=== PATIENT | male | born 1950 | race Caucasian/White ===

== ENCOUNTER 2019-01-13 09:44 | Outpatient (REF) | payer MEDICARE, SELFPAY ==
[2019-01-13 19:21] LABS: HCT 42.9 % (40.0-50.0); HGB 14.8 g/dL (13.5-17.5); Mean Corp. HGB Concentration 34.5 g/dL (32.0-36.0); Mean Corpuscular Hemoglobin 29.6 pg (27.0-33.0); Mean Corpuscular Volume 85.8 fL (80-95); Mean Platelet Volume 10.4 fL (8.0-11.0); Platelet Count 228 x1000/uL (130-400); RBC Distribution Width 13.9 % (11.8-14.1); White Blood Cell Count 6.21 k/cumm (4.4-10.8)
[2019-01-13 19:50] LABS: Anion Gap 8.4 mmol/L (3-11); BUN 17 mg/dL (7-18); CO2 28.6 mmol/L (21.0-32.0); Calcium 8.7 mg/dL (8.5-10.1); Chloride 104 mmol/L (98-107); Cholesterol 187 mg/dL (50-200); Glucose 114 mg/dL (70-100); HDL Cholesterol 29 mg/dL (40-60); LDL CHOLESTEROL 113 mg/dL (<100); Potassium 4.4 mmol/L (3.5-5.1); Sodium 141 mmol/L (136-145); Triglyceride 226 mg/dL (30-150)
[2019-01-13 20:13] LABS: CREATININE 0.93 mg/dL (0.70-1.30); Uric Acid 6.1 mg/dL (3.5-7.2)
== END 2019-01-13 10:04 ==
LOC: NCHCN 09:44
PROVIDERS: PCP Internal Medicine; Visit Provider Internal Medicine
DX: M10.9 Gout, unspecified (principal); E78.1 Pure hyperglyceridemia
CPT/HCPCS: 80048; 80061; 83721; 85027; 84550

== ENCOUNTER 2020-01-16 19:27 | Outpatient (REF) | payer MEDICARE, SELFPAY ==
[2020-01-16 19:16] LABS: HCT 43.6 % (40.0-50.0); HGB 14.6 g/dL (13.5-17.5); Mean Corp. HGB Concentration 33.5 g/dL (32.0-36.0); Mean Corpuscular Volume 86.7 fL (80-95); Mean Platelet Volume 10.8 fL (8.0-11.0); Platelet Count 234 x1000/uL (130-400); RBC 5.03 m/cumm (4.50-6.00); RBC Distribution Width 14.2 % (11.8-14.1); White Blood Cell Count 6.57 k/cumm (4.4-10.8)
[2020-01-16 19:36] LABS: Anion Gap 7.6 mmol/L (3-11); BUN 13 mg/dL (7-18); CO2 27.4 mmol/L (21.0-32.0); CREATININE 0.96 mg/dL (0.70-1.30); Calcium 8.9 mg/dL (8.5-10.1); Chloride 105 mmol/L (98-107); Glucose 107 mg/dL (74-106); LDL CHOLESTEROL 123 mg/dL (<100); Potassium 4.2 mmol/L (3.5-5.1); Sodium 140 mmol/L (136-145)
[2020-01-16 19:46] LABS: Uric Acid 6.4 mg/dL (3.5-7.2)
== END 2020-01-16 19:47 ==
LOC: NCHCN 19:27
PROVIDERS: PCP Internal Medicine; Visit Provider Internal Medicine
DX: E78.5 Hyperlipidemia, unspecified (principal); M10.9 Gout, unspecified; R03.0 Elevated blood-pressure reading, without diagnosis of hypertension
CPT/HCPCS: 80048; 83721; 85027; 84550

== ENCOUNTER 2020-12-17 10:03 | Outpatient (REF) | payer MEDICARE, SELFPAY ==
[2020-12-17 20:03] LABS: CREATININE 0.9 mg/dL (0.70-1.30)
== END 2020-12-17 10:04 | disposition home or self-care (01) ==
LOC: NCHCN 10:03
PROVIDERS: PCP Internal Medicine; Visit Provider Nurse Practitioner Family
DX: M48.061 Spinal stenosis, lumbar region without neurogenic claudication (principal); Z01.812 Encounter for preprocedural laboratory examination
CPT/HCPCS: 82565

== ENCOUNTER 2021-05-13 15:36 | Outpatient (REF) | payer MEDICARE, SELFPAY ==
[2021-05-13 18:56] LABS: HCT 43.9 % (40.0-50.0); HGB 14.9 g/dL (13.5-17.5); MCHC 33.9 % (32.0-36.0); MCV 88.3 fL (80-95); MPV 10.3 fL (8.0-11.0); Platelet Count 235 10^3/uL (130-400); RBC 4.97 10^6/uL (4.36-5.78); RDW 13.6 % (11.8-14.1); RDW-SD 43.8 fL; WBC 7.38 10^3/uL (4.4-10.8)
[2021-05-13 19:10] LABS: Anion Gap 7.8 mmol/L (3-11); BUN 14 mg/dL (7-18); CO2 27.2 mmol/L (21.0-32.0); CREATININE 0.9 mg/dL (0.70-1.30); Chloride 104 mmol/L (98-107); Glucose 96 mg/dL (74-106); Potassium 4.1 mmol/L (3.5-5.1); Sodium 139 mmol/L (136-145); Uric Acid 6.6 mg/dL (3.5-7.2)
== END 2021-05-13 15:37 | disposition home or self-care (01) ==
LOC: NCHCN 15:36
PROVIDERS: PCP Internal Medicine; Visit Provider Internal Medicine
DX: M54.32 Sciatica, left side (principal); E29.1 Testicular hypofunction; M10.9 Gout, unspecified; E66.9 Obesity, unspecified
CPT/HCPCS: 80048; 85027; 84550

== ENCOUNTER 2022-05-26 17:10 | Outpatient (REF) | payer MEDICARE, SELFPAY ==
[2022-05-26 20:21] LABS: ALT 43 U/L (16-63); Anion Gap 13.2 mmol/L (3-11); BUN 12 mg/dL (7-18); CO2 25.8 mmol/L (21.0-32.0); CREATININE 0.7 mg/dL (0.70-1.30); Calcium 9.7 mg/dL (8.5-10.1); Calculated LDL 106 mg/dL (<100); Chloride 102 mmol/L (98-107); Cholesterol 201 mg/dL (<200); Estimated GFR 98.51 (mL/min/1.73m2); Glucose 96 mg/dL (74-106); HDL Cholesterol 41 mg/dL (40-60); Potassium 4.1 mmol/L (3.5-5.1); Sodium 141 mmol/L (136-145); Triglyceride 272 mg/dL (<150)
== END 2022-05-26 17:11 | disposition home or self-care (01) ==
LOC: NCHCN 17:10
PROVIDERS: PCP Internal Medicine; Visit Provider Internal Medicine
DX: I10 Essential (primary) hypertension (principal); E78.1 Pure hyperglyceridemia; M16.12 Unilateral primary osteoarthritis, left hip
CPT/HCPCS: 80048; 80061; 84460

== ENCOUNTER 2023-12-16 15:56 | Outpatient (REF) | payer MEDICARE, SELFPAY ==
[2023-12-16 21:35] LABS: Anion Gap 9.5 mmol/L (3-11); BUN 14 mg/dL (7-18); CO2 25.5 mmol/L (21.0-32.0); CREATININE 0.9 mg/dL (0.70-1.30); Calcium 9.6 mg/dL (8.5-10.1); Chloride 106 mmol/L (98-107); Estimated GFR 90.74 (mL/min/1.73m2); Glucose 94 mg/dL (74-106); Potassium 3.9 mmol/L (3.5-5.1); Sodium 141 mmol/L (136-145); Uric Acid 4.8 mg/dL (3.5-7.2)
[2023-12-16 22:21] LABS: Calculated LDL 109 mg/dL (<100); Cholesterol 184 mg/dL (<200); HDL Cholesterol 48 mg/dL (40-60); Triglyceride 136 mg/dL (<150)
== END 2023-12-16 15:57 | disposition home or self-care (01) ==
LOC: NCHCN 15:56
PROVIDERS: PCP Internal Medicine; Visit Provider Internal Medicine
DX: I10 Essential (primary) hypertension (principal)
CPT/HCPCS: 80048; 80061; 84550

== ENCOUNTER 2025-02-15 19:08 | Outpatient (REF) | payer MEDICARE, SELFPAY ==
[2025-02-15 20:29] LABS: HCT 47.3 % (40.0-50.0); HGB 15.9 g/dL (13.5-17.5); MCH 29.1 pg (27.0-33.0); MCHC 33.6 % (32.0-36.0); MCV 87 fL (80-95); MPV 9.8 fL (8.0-11.0); Platelet Count 235 10^3/uL (130-400); RBC 5.47 10^6/uL (4.36-5.78); RDW 14.0 % (11.8-14.1); RDW-SD 44.3 fL; WBC 9.22 10^3/uL (4.4-10.8)
[2025-02-15 20:44] LABS: Anion Gap 7.1 mmol/L (3-11); BUN 21 mg/dL (7-18); CO2 28.9 mmol/L (21.0-32.0); Calcium 9.9 mg/dL (8.5-10.1); Calculated LDL 106 mg/dL (<100); Chloride 103 mmol/L (98-107); Cholesterol 181 mg/dL (<200); Estimated GFR 89.62 (mL/min/1.73m2); Glucose 105 mg/dL (74-106); HDL Cholesterol 47 mg/dL (>or=40); Potassium 4.5 mmol/L (3.5-5.1); Sodium 139 mmol/L (136-145); Triglyceride 143 mg/dL (<150)
[2025-02-15 22:41] LABS: Uric Acid 5.4 mg/dL (3.5-7.2)
== END 2025-02-15 19:09 | disposition home or self-care (01) ==
LOC: NCHCN 19:08
PROVIDERS: PCP Internal Medicine; Visit Provider Internal Medicine
DX: I10 Essential (primary) hypertension (principal); M10.9 Gout, unspecified
CPT/HCPCS: 80048; 80061; 85027; 84550